=== PATIENT | male | born 1995 | race Caucasian/White ===

== ENCOUNTER → 2016-07-18 | Outpatient (CLI) | payer MEDICAID ==
[~2016-07-18] MED LIST: CLON0.1T PO; DEXM20CP PO; FLUO10CA13 PO; RISP0.5T18 PO
== END | disposition home or self-care (01) ==
LOC: STAR 11:12
PROVIDERS: ATTEND Orthopaedic Surgery
DX: Z02.9 Encounter for administrative examinations, unspecified (principal)

== ENCOUNTER 2016-07-25 11:47 | Day surgery (SDC) | payer MEDICAID, OTHER ==
[~2016-07-25] VITALS: Ht 175.3 cm; Wt 77.0 kg
[~2016-07-25 11:47] MED LIST changes: +BUPIVACAINE/PF 0.5% ONE; +BUPIVACAINE/PF-EPI 0.25% 1:200K ONE; +FENTANYL PF 250 MCG/5ML ONE; +LIDOCAINE 1%-EPI 1:100K, 50ML ONE; +MIDAZOLAM 1 MG/ML, 2ML ONE
[2016-07-25 12:09] VITALS: BP 122/77
[2016-07-25] MEDS ORDERED: LIDOCAINE 1%, 2ML ONE (12:22)
[2016-07-25] MEDS ORDERED: PROPOFOL 10 MG/ML, 20ML ONE (14:42)
[2016-07-25] MEDS ORDERED: KETOROLAC 30 MG/1 ML ONE (14:42)
[2016-07-25] MEDS ORDERED: ONDANSETRON 2MG/ML, 2ML ONE (14:42)
[2016-07-25] MEDS ORDERED: CEFAZOLIN 1,000 MG ONE (14:42)
[2016-07-25] MEDS ORDERED: DEXAMETHASONE 4 MG/ML, 5ML ONE (14:42)
[2016-07-25] MEDS ORDERED: MEPERIDINE/PF 25MG/0.5ML IVPush PRN (16:00)
[2016-07-25] MEDS ORDERED: METOCLOPRAMIDE 5 MG/ML, 2ML IV PRN (16:00)
[2016-07-25] MEDS ORDERED: OXYcodone 5 MG/5 ML ORAL.SOL UDC PO PRN (16:00)
[2016-07-25] MEDS ORDERED: LABETALOL 5MG/ML, 20ML IV PRN (16:00)
[2016-07-25] MEDS ORDERED: FENTANYL PF 100 MCG/2ML IV PRN (16:00)
[2016-07-25] MEDS ORDERED: ALBUTEROL/IPRATROPIUM 2.5MG/0.5MG, 3 ML NPPB PRN (16:00)
[2016-07-25] MEDS ORDERED: PROMETHAZINE 25 MG/ML, 1ML IV PRN (16:00)
[2016-07-25] MEDS ORDERED: ONDANSETRON 2MG/ML, 2ML IVPush PRN (16:00)
[2016-07-25] MEDS ORDERED: HYDROmorphone 1 MG/ML, 1ML IV PRN (16:00)
[2016-07-25] MEDS ORDERED: MIDAZOLAM 1 MG/ML, 2ML IV PRN (16:00)
[2016-07-25] MEDS ORDERED: ACETAMINOPHEN 325 MG TABLET PO PRN (16:00)
[2016-07-25] MEDS ORDERED: OXYcodone 5 MG/5 ML ORAL.SOL UDC ONE (16:41)
[2016-07-25] MEDS ORDERED: ACETAMINOPHEN 650 MG/20.3 ML UDC ONE (16:41)
[2016-07-25] MEDS ORDERED: FENTANYL PF 100 MCG/2ML ONE (16:42)
[2016-07-25] MEDS ORDERED: RISPERIDONE 0.5 MG TABLET PO SCH (21:00)
[2016-07-26] MEDS ORDERED: FLUOXETINE 10 MG CAP PO SCH (09:00)
[2016-07-26] MEDS ORDERED: DEXMETHYLPHENIDATE HCL 20 MG PO SCH (09:00)
== END 2016-07-25 18:19 | disposition home or self-care (01) ==
LOC: OUT 11:47
PROVIDERS: ATTEND Orthopaedic Surgery
DX: S83.512A Sprain of anterior cruciate ligament of left knee, initial encounter (principal); S83.282A Other tear of lateral meniscus, current injury, left knee, initial encounter; X58.XXXA Exposure to other specified factors, initial encounter; Y93.9 Activity, unspecified; Y92.9 Unspecified place or not applicable; Y99.9 Unspecified external cause status; M65.862 Other synovitis and tenosynovitis, left lower leg; F90.9 Attention-deficit hyperactivity disorder, unspecified type
CPT/HCPCS: 29876; 29888; C1713; J0690; J1100; J1885; J2250; J2405; J2704; J2765; J3010; J3490